=== PATIENT | female | born 1945 | race Caucasian/White ===

== ENCOUNTER 2019-01-01 07:47 | Day surgery (SDC) | payer OTHER, MEDICAID ==
[~2019-01-01] VITALS: Ht 160 cm; Wt 95.2 kg
[2019-01-01 08:07] VITALS: BP 144/86
[2019-01-01 14:17] VITALS: BP 138/70
== END 2019-01-01 12:35 | disposition home or self-care (01) ==
LOC: DS 07:47 → OR 10:30 → GI 10:30 → DS 12:35
PROVIDERS: Internal Medicine
PROC: 0DB68ZX Excision of Stomach, Via Natural or Artificial Opening Endoscopic, Diagnostic (ICD-10-PCS; principal; 2019-01-01 10:30)
PROC: 0DBK8ZZ Excision of Ascending Colon, Via Natural or Artificial Opening Endoscopic (ICD-10-PCS; 2019-01-01 10:30)
DX: K29.60 Other gastritis without bleeding (principal); K29.80 Duodenitis without bleeding; D12.2 Benign neoplasm of ascending colon; K57.30 Diverticulosis of large intestine without perforation or abscess without bleeding; K62.5 Hemorrhage of anus and rectum; K21.9 Gastro-esophageal reflux disease without esophagitis; K75.81 Nonalcoholic steatohepatitis (NASH); I10 Essential (primary) hypertension; E78.5 Hyperlipidemia, unspecified; E66.9 Obesity, unspecified; Z87.891 Personal history of nicotine dependence
CPT/HCPCS: 43235; 45378; G0500; J1200; J1610; J2250; J2310; J3010; J3490